=== PATIENT | female | born 1980 | race Caucasian/White ===

== ENCOUNTER 2018-11-28 13:01 | Emergency (ER) | payer BC, MEDICARE ==
[~2018-11-28] VITALS: Ht 160 cm; Wt 70.3 kg
[2018-11-28] MEDS ORDERED: CITROMA296 ML PO (17:25)
== END 2018-11-28 17:35 | disposition home or self-care (01) ==
LOC: ED 13:01
DX: K59.00 Constipation, unspecified (principal); Z88.1 Allergy status to other antibiotic agents; Z88.8 Allergy status to other drugs, medicaments and biological substances